=== PATIENT | male | born 1995 | race Caucasian/White ===

== ENCOUNTER 2018-12-12 09:13 | Outpatient (CLI) | payer OTHER | END 2018-12-12 09:14 | disposition home or self-care (01) | LOC: LAB 09:13 | PROVIDERS: ATTEND Internal Medicine Gastroenterology | DX: K85.90 Acute pancreatitis without necrosis or infection, unspecified (principal) | CPT/HCPCS: 36415; 84478 ==

== ENCOUNTER 2019-06-20 14:04 | Outpatient (CLI) | payer OTHER ==
[2019-06-20 14:39] LABS: ALBUMIN 4.8 g/dL (3.2-5.5); BILIRUBIN,DIRECT 0.1 mg/dL (0.1-0.5); BILIRUBIN,TOTAL 0.6 mg/dL (0.2-1.0); TOTAL PROTEIN 8.4 g/dL (6.7-8.2)
== END 2019-06-20 14:05 | disposition home or self-care (01) ==
LOC: LAB 14:04
PROVIDERS: ATTEND Internal Medicine Gastroenterology
DX: K85.90 Acute pancreatitis without necrosis or infection, unspecified (principal)
CPT/HCPCS: 36415; 80076; 82150; 83690

== ENCOUNTER 2019-06-25 14:50 | Outpatient (CLI) | payer OTHER ==
[2019-06-25 16:07] LABS: AMYLASE 134 U/L (28-100); LIPASE 139 U/L (22-51)
== END 2019-06-25 14:51 | disposition home or self-care (01) ==
LOC: LAB 14:50
PROVIDERS: ATTEND Internal Medicine Gastroenterology
DX: K85.90 Acute pancreatitis without necrosis or infection, unspecified (principal)
CPT/HCPCS: 36415; 82150; 83690